=== PATIENT | female | born 1945 | race Caucasian/White ===

== ENCOUNTER → 2019-02-15 | Outpatient (CLI) | payer OTHER | END | disposition home or self-care (01) | LOC: OIH 10:45 → EEVIPCON 11:30 | PROVIDERS: ATTEND Family Medicine | DX: Z13.6 Encounter for screening for cardiovascular disorders (principal) | CPT/HCPCS: 75571 ==

== ENCOUNTER → 2019-03-01 | Outpatient (CLI) | payer OTHER | END | disposition home or self-care (01) | LOC: RAH 11:26 | PROVIDERS: ATTEND Family Medicine | DX: E04.2 Nontoxic multinodular goiter (principal) | CPT/HCPCS: 76536 ==

== ENCOUNTER → 2019-08-23 | Outpatient (CLI) | payer OTHER | END | disposition home or self-care (01) | LOC: RAH 08:35 | PROVIDERS: ATTEND Internal Medicine Endocrinology, Diabetes & Metabolism | DX: E04.2 Nontoxic multinodular goiter (principal) | CPT/HCPCS: 76536 ==

== ENCOUNTER → 2021-08-28 | Outpatient (CLI) | payer MEDICARE ==
[2021-08-28 12:34] LABS: THYROID STIMULATING HORMONE 2.13 uIU/mL (0.36-3.74)
== END | disposition home or self-care (01) ==
LOC: RAH 10:50
PROVIDERS: ATTEND Internal Medicine Endocrinology, Diabetes & Metabolism
DX: E04.2 Nontoxic multinodular goiter (principal)
CPT/HCPCS: 36415; 76536; 84439; 84443

== ENCOUNTER 2021-09-06 10:21 | Emergency (ER) | payer MEDICARE ==
[~2021-09-06] VITALS: Ht 165.1 cm; Wt 84.4 kg
[2021-09-06] MEDS ORDERED: ACETAMINOPHEN 500 MG TABLET PO SCH (10:30)
[2021-09-06 10:46] LABS: BASOPHILS % (AUTO) 1.2 % (0.0-5.0); EOSINOPHILS % (AUTO) 1.9 % (0.0-8.0); HEMATOCRIT 45.8 % (36-48); LYMPHOCYTES % (AUTO) 34.5 % (21.0-51.0); MEAN CORPUSCULAR HEMOGLOBIN 27.2 pg (27.0-33.0); MEAN CORPUSCULAR VOLUME 87.7 fL (79-99); MONOCYTES % (AUTO) 7.3 % (3.0-13.0); NEUTROPHILS % (AUTO) 54.6 % (40.0-77.0); PLATELET COUNT (AUTO) 297 K/uL (130-400); RED BLOOD CELL COUNT(AUTO) 5.22 MIL/uL (4.00-5.50); RED CELL DISTRIBUTION WIDTH 12.7 % (11.0-15.5); WHITE BLOOD COUNT (AUTO) 6.4 K/uL (4.8-10.8)
[2021-09-06] MEDS ORDERED: ACETAMINOPHEN 500 MG TABLET ONE (10:50)
[2021-09-06 11:04] LABS: ALBUMIN 3.8 g/dL (3.5-5.0); BILIRUBIN,TOTAL 0.4 mg/dL (0.2-1.0); CREATININE 0.7 mg/dL (0.5-1.5); POTASSIUM 4.1 mmol/L (3.5-5.1); TOTAL PROTEIN, SERUM 7.1 g/dL (6.0-8.3)
[2021-09-06 11:12] LABS: APPEARANCE,URINE SL CLOUDY (CLEAR); BILIRUBIN,URINE NEGATIVE (NEGATIVE); COLOR,URINE YELLOW (YELLOW); GLUCOSE, URINE (UA) NEGATIVE (NEGATIVE); KETONES,URINE NEGATIVE (NEGATIVE); LEUKOCYTE ESTERASE ,URINE NEGATIVE (NEGATIVE); NITRATE,URINE POSITIVE (NEGATIVE); OCCULT BLOOD,URINE NEGATIVE (NEGATIVE); PROTEIN,URINE NEGATIVE (NEGATIVE); UROBILINOGEN,URINE 0.2 mg/dL (0.2-1.0)
[2021-09-06] MEDS ORDERED: NAPR-1196 PO (11:55)
[2021-09-06] MEDS ORDERED: CEPH500B PO (11:57)
[2021-09-06] MEDS ORDERED: KETOROLAC 30MG VIAL (30MG/ML) IM SCH (12:00)
[2021-09-06 12:01] LABS: BACTERIA,URINE Many /HPF (None Seen); RBC,URINE 0-1 /HPF (0-1); SQUAMOUS EPITHELIAL CELL,UR 0-2 /HPF (0-2)
[2021-09-06 12:18] VITALS: BP 136/70
== END 2021-09-06 12:17 | disposition home or self-care (01) ==
LOC: EDH 10:21
DX: M54.32 Sciatica, left side (principal); N39.0 Urinary tract infection, site not specified; Z90.49 Acquired absence of other specified parts of digestive tract
CPT/HCPCS: 36415; 73502; 80053; 81001; 85025; 87077; 87088; 87186; 96372; 99284; J1885

== ENCOUNTER → 2023-04-08 | Outpatient (CLI) | payer MEDICARE ==
[~2023-04-08] MED LIST: CEPH500B PO; NAPR-1196 PO
== END | disposition home or self-care (01) ==
LOC: RAH 15:40
PROVIDERS: ATTEND Family Medicine
DX: M17.11 Unilateral primary osteoarthritis, right knee (principal); M25.561 Pain in right knee
CPT/HCPCS: 73562

== ENCOUNTER → 2023-07-01 | Outpatient (CLI) | payer MEDICARE | END | disposition home or self-care (01) | LOC: RAH 12:34 | PROVIDERS: ATTEND Family Medicine | DX: R05.9 Cough, unspecified (principal); M47.815 Spondylosis without myelopathy or radiculopathy, thoracolumbar region; M41.84 Other forms of scoliosis, thoracic region | CPT/HCPCS: 71046 ==

== ENCOUNTER → 2023-12-08 | Outpatient (CLI) | payer OTHER | END | disposition home or self-care (01) | LOC: RAH 08:07 | PROVIDERS: ATTEND Family Medicine | DX: Z13.6 Encounter for screening for cardiovascular disorders (principal) | CPT/HCPCS: 75571 ==